=== PATIENT | male | born 1975 ===

== ENCOUNTER 2020-01-07 14:30 | Emergency (ER) | payer OTHER ==
[~2020-01-07] VITALS: Ht 177.8 cm; Wt 86.4 kg
[2020-01-07] MEDS ORDERED: diphenhydrAMINE 50 mg/ml inj IM ONE (14:50)
[2020-01-07] MEDS ORDERED: methylPREDNISolone sod succ 125mg/2ml vial IV ONE (14:50)
--- NOTE | 2020-01-07 15:12 | NUR ---
Patient passed one [id number] BM to bedside commode and vomitted 100ml clear emesis.
--- NOTE | 2020-01-07 15:25 | NUR ---
RN spoke with LASHAUN Kinney regarding patient's report of severe pain. Recieved and repeated back verbal order for 1g tylenol.
[2020-01-07] MEDS ORDERED: normal saline 1000ML IV soln IVB ONE ×2 (15:45→18:00)
[2020-01-07] MEDS ORDERED: ondansetron 4mg rapidly disintigrating tab PO ONE (15:45)
[2020-01-07] MEDS ORDERED: pantoprazole 40 MG vial IV ONE (16:00)
--- NOTE | 2020-01-07 16:07 | NUR ---
Pt refusing to leave monitoring equipment on. Pt was out of bed upon this RN entering the room. Pt currently back in bed.
--- NOTE | 2020-01-07 16:29 | NUR ---
Discussed pt's continued abdominal pain/discomfort with EDMD Clayton;new order for Reglan received.
[2020-01-07] MEDS ORDERED: metoclopramide 5 mg/ml inj IV ONE (16:30)
[2020-01-07] MEDS ORDERED: ketorolac trometh. 30mg/ml inj. IV ONE (17:10)
[2020-01-07 17:25] VITALS: BP 110/85
[2020-01-07] MEDS ORDERED: morphine 4 MG/ML inj SYRINge IV PRN (18:00)
[2020-01-07] MEDS ORDERED: ondansetron/PF 4mg/2ml inj IV ONE (18:00)
--- NOTE | 2020-01-07 18:01 | NUR ---
Hot compress applied. EDMD aware. RN counselled patient regarding avoiding rodas and heat injury when using hot compresses;patient voiced understanding.
[2020-01-07 18:41] LABS: BASOPHILS % (AUTO) 0 % (0-1); EOSINOPHILS % (AUTO) 0 % (0-6); HEMATOCRIT 32.6 % (42.0-52.0); HEMOGLOBIN 10.9 g/dl (14.0-17.9); LYMPHOCYTES # (AUTO) 0.4 X10'3 (1.1-4.8); LYMPHOCYTES % (AUTO) 2.4 % (21-51); MEAN CORPUSCULAR HEMOGLOBIN 30.1 PG (27.0-31.0); MEAN CORPUSCULAR HGB CONC 33.6 g/dL (33.0-36.5); MEAN CORPUSCULAR VOLUME 89.6 FL (78-98); MEAN PLATELET VOLUME 8.8 FL (7.4-10.4); MONOCYTES # (AUTO) 0.7 X10'3 (0-0.9); NEUTROPHILS # (AUTO) 15.1 X10'3 (1.8-7.7); NEUTROPHILS % (AUTO) 93.6 % (42-75); PLATELET COUNT 183 X10'3 (140-440); RED BLOOD COUNT 3.64 X10'6 (4.70-6.10); RED CELL DISTRIBUTION WIDTH 13.4 % (11.5-14.5); WHITE BLOOD COUNT 16.2 X10'3 (4.5-11.0)
[2020-01-07] MEDS ORDERED: acetaminophen 1,000mg/100ml IV 100 ML IV SCH (20:00)
== END 2020-01-07 20:12 | disposition home or self-care (01) ==
LOC: ER 14:30
DX: R21 Rash and other nonspecific skin eruption (principal); T78.40XA Allergy, unspecified, initial encounter; F12.988 Cannabis use, unspecified with other cannabis-induced disorder; R11.2 Nausea with vomiting, unspecified; Y92.89 Other specified places as the place of occurrence of the external cause
CPT/HCPCS: 36415; 85025; 93005; 96361; 96372; 96374; 96375; 99284; C9113; J0131; J1200; J1885; J2270; J2405; J2765; J2930; J7030